=== PATIENT | female | born 1995 | race Two or more races ===

== ENCOUNTER 2018-06-12 04:45 | Emergency (ER) | payer SELFPAY ==
[~2018-06-12] VITALS: Ht 162.6 cm; Wt 56.7 kg
[2018-06-12 04:50] VITALS: BP 131/100
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
[2018-06-12] MEDS ORDERED: IV NS 0.9% 1,000 ML BAG IV ONE (05:30)
[2018-06-12] MEDS ORDERED: PANTOPRAZOLE 40 MG VIAL IV ONE (05:30)
[2018-06-12] MEDS ORDERED: KETOROLAC TROMETHAMINE INJ 30 MG/ML VIAL IV ONE (05:30)
[2018-06-12] MEDS ORDERED: LORAZEPAM INJ 2 MG/ML VIAL IV ONE (05:30)
[2018-06-12 05:39] LABS: BASOPHILS % (AUTO) 0.1 % (0.0-2.0); HEMATOCRIT 38 % (33-45); HEMOGLOBIN 12.5 g/dL (11.5-14.8); LYMPHOCYTES # (AUTO) 0.7 /CMM (0.8-4.8); LYMPHOCYTES % (AUTO) 3.6 % (20.0-44.0); MEAN CORPUSCULAR HGB CONC 33 g/dl (31.0-36.0); MEAN CORPUSCULAR VOLUME 88 fL (82-100); MONOCYTES # (AUTO) 0.3 /CMM (0.1-1.30); MONOCYTES % (AUTO) 1.7 % (2.0-12.0); NEUTROPHILS # (AUTO) 17.3 /CMM (1.8-8.9); NEUTROPHILS % (AUTO) 94.6 % (43.0-81.0); PLATELET COUNT (AUTO) 405 /CMM (150-450); RED BLOOD CELL COUNT(AUTO) 4.34 MIL/uL (4.0-5.2); WHITE BLOOD COUNT (AUTO) 18.3 K/uL (4.3-11.0)
[2018-06-12] MEDS ORDERED: LORAZEPAM INJ 2 MG/ML VIAL ONE (05:42)
[2018-06-12] MEDS ORDERED: KETOROLAC TROMETHAMINE 15 MG/ML VIAL ONE (05:42)
[2018-06-12] MEDS ORDERED: PANTOPRAZOLE 40 MG VIAL ONE (05:42)
[2018-06-12 05:45] LABS: CALCIUM, SERUM 9.4 mg/dL (8.5-10.1); CREATININE 0.9 mg/dL (0.6-1.3); POTASSIUM 4.1 mmol/L (3.5-5.1)
[2018-06-12 05:53] LABS: ALBUMIN 4.4 g/dL (3.4-5.0); BILIRUBIN,DIRECT 0.1 mg/dL (0.0-0.2); BILIRUBIN,TOTAL 0.4 mg/dL (0.2-1.0); TOTAL PROTEIN, SERUM 8.3 g/dL (6.4-8.2)
--- NOTE | 2018-06-12 06:12 | NUR ---
Patient is resting comfortably in bed with eyes closed. Easily aroused. VSS
--- NOTE | 2018-06-12 07:06 | NUR ---
IV removed. Catheter intact and site benign. Pressure and 4x4 applied to site. No bleeding noted.Patient discharged to home in stable condition. Written and verbal after care instructions given. Patient verbalizes understanding of instruction.
== END 2018-06-12 07:10 | disposition home or self-care (01) ==
LOC: ER 04:47
DX: S60.512A Abrasion of left hand, initial encounter (principal); S80.811A Abrasion, right lower leg, initial encounter; S80.211A Abrasion, right knee, initial encounter; G43.A0 Cyclical vomiting, in migraine, not intractable; D72.829 Elevated white blood cell count, unspecified; Z60.2 Problems related to living alone; W05.2XXA Fall from non-moving motorized mobility scooter, initial encounter; Y93.I9 Activity, other involving external motion; Y92.89 Other specified places as the place of occurrence of the external cause; Y99.8 Other external cause status
CPT/HCPCS: 36415; 80048; 80076; 83690; 85025; 96361; 96374; 96375; 99283; A6403; C9113; J1885; J2060; J7030